=== PATIENT | male | born 1960 | race Caucasian/White ===

== ENCOUNTER → 2018-10-12 16:45 | Emergency (ER) | payer OTHER ==
[~2018-10-12 16:45] MED LIST: Aspirin 81 mg CHEW TAB* 81 MG TAB.CHEW PO ONE; Dexamethasone IV* 4 MG/ML 1 ML (4 MG) IV SLOW PU ONE; Famotidine IV* 10 MG/ML 2 ML (20 mg) IV SLOW PU ONE; diPHENhydraMINE PO* 25 MG PO ONE
--- NOTE | 2018-10-12 17:24 | ED ---
HPI Chest Pain - HPI Summary HPI Summary: Pt is a 57 y/o male who presents to the ED c/o numbness. About 1 hour ago, he noticed left-sided facial swelling and numbness, left toe numbness, CP, and left shoulder pain. Pt denies any palpitations, SOB, paresthesia, weakness, nausea, visual changes, or pruritus. He also reports about 3-4 dizzy spells in the past 3 weeks. Pt has been having flat stool recently, and his last normal colonoscopy was one year ago. - History of Current Complaint Chief Complaint: EDGeneral Time Seen by Provider: 10/12/18 16:55 Hx Obtained From: Patient Onset/Duration: Started Hours Ago - 1 hour [employer], Still Present Timing: Constant Pain Intensity: 0 Pain Scale Used: 0-10 Numeric Chest Pain Location: Diffuse Chest Pain Radiates: Yes Chest Pain Radiates To:: Shoulder Aggravating Factor(s): Nothing Alleviating Factor(s): Nothing Associated Signs and Symptoms: Positive: Chest Pain, Numbness, Swelling. Negative: Tingling, Weakness, Shortness of Breath, Nausea, Palpitations - Allergy/Home Medications Allergies/Adverse Reactions: Allergies Allergy/AdvReac Type Severity Reaction Status Date / Time MS Sulfamethoxazole Allergy Unknown Verified 05/08/17 14:57 w/Trimethoprim Reaction [From Bactrim] Details PMH/Surg Hx/FS Hx/Imm Hx Endocrine/Hematology History: Denies: Hx Diabetes Cardiovascular History: Reports: Hx Hypertension Infectious Disease History: No Infectious Disease History: Denies: Traveled Outside the [place] in Last 30 Days - Family History Known Family History: Positive: Cardiac Disease, Other - stroke - Social History Hx Substance Use: No Substance Use Type: Reports: None Hx Tobacco Use: No Smoking Status (MU): Never Smoked Tobacco Review of Systems Negative: Other - visual changes Positive: Chest Pain. Negative: Palpitations Negative: Shortness Of Breath Negative: Nausea Positive: Arthralgia - left shoulder Positive: Other - redness, swelling, NEGATIVE: pruritus Positive: Numbness. Negative: Weakness, Paresthesia All Other Systems Reviewed And Are Negative: Yes Physical Exam - Summary Physical Exam Summary: Appearance: Well appearing, no pain distress Skin: warm, dry, flushing of upper chest Head/face: facial swelling, smile asymmetry, mild induration and redness to left upper lip Eyes: EOMI, LEONARDA ENT: mucous membranes moist Neck: supple, non-tender Respiratory: CTA, breath sounds present Cardiovascular: RRR, pulses symmetrical Abdomen: non-tender, soft, torso swelling Bowel Sounds: present Musculoskeletal: normal, strength/ROM intact Neuro: normal, sensory motor intact, A&Ox3 Triage Information Reviewed: Yes Vital Signs On Initial Exam: Initial Vitals Temp Pulse Resp BP Pulse Ox 97.6 F 78 18 169/95 97 10/12/18 16:49 10/12/18 16:49 10/12/18 16:49 10/12/18 16:49 10/12/18 16:49 Vital Signs Reviewed: Yes Diagnostics - Vital Signs Vital Signs Temp Pulse Resp BP Pulse Ox 10/12/18 16:49 97.6 F 78 18 169/95 97 - Laboratory Result Diagrams: 10/12/18 17:23 10/12/18 17:23 Lab Statement: Any lab studies that have been ordered have been reviewed, and results considered in the medical decision making process. - Radiology CXR Radiology Interpretation Completed By: Radiologist Summary of Radiographic Findings: NO EVIDENCE FOR ACUTE DISEASE. ED physician reviewed radiology report. - EKG 16:59 Cardiac Rate: NL - 83 bpm EKG Rhythm: Sinus Rhythm ST Segment: Normal Summary of EKG Findings: Incomplete RBBB, nl axis Chest Pain Course/Dx - Course Course Of Treatment: Nurse's note reviewed. Patient with numbness in the left face and foot. Also has swelling of the left upper lip. Possible allergy with some flushing in the thorax. Treated with IV Pepcid and steroid here with some improvement. Also discover the patient to be on Rameau Leonarda. He is hypertensive as well. This likely could be SANTHOSH inhibitor associated angioedema. Chest pain is not small part of this. He had negative troponin, EKG. He will follow-up closely primary care physician. His Rameau pros discontinued for losartan. - Chest Pain Differential Diagnosis/HQI/PQRI: Acute TN, ACS, Other: - Allergic reaction versus SANTHOSH inhibitor angioedema - Diagnoses Provider Diagnoses: Atypical chest pain, SANTHOSH inhibitor-aggravated angioedema Discharge - Sign-Out/Discharge Documenting (check all that apply): Patient Departure - Discharge - Discharge Plan Condition: Improved Disposition: HOME Prescriptions: Famotidine TAB* [Pepcid 20 MG TAB*] 20 mg PO BID #10 tab Losartan TAB* [Cozaar TAB*] 25 mg PO DAILY #30 tab predniSONE TAB* [Deltasone 20 MG TAB*] 40 mg PO DAILY 3 Days #6 tab Patient Education Materials: Chest Pain (ED), Angioedema (ED) Referrals: Chandan Glover MD [Primary Care Provider] - Additional Instructions: Take a baby aspirin daily. DISCONTINUE RAMIPRIL. Call your doctor first thing on Monday to schedule prompt follow-up and likely outpatient stress test. Return with recurring chest pain, pain down the arm, difficulty breathing, weakness, worse, new symptoms or other concerns as discussed. - Billing Disposition and Condition Condition: IMPROVED Disposition: Home - Attestation Statements Document Initiated by Juliana: Yes Documenting Scribe: Chasity Loya Provider For Whom Juliana is Documenting (Include Credential): Adam Mix MD Scribe Attestation: Chasity Sierra, scribed for Adam Mix MD on 10/12/18 at 1911. Scribe Documentation Reviewed: Yes Provider Attestation: The documentation as recorded by the Chasity ferguson accurately reflects the service I personally performed and the decisions made by , Adam Mix MD Status of Scribe Document: Viewed
[2018-10-12 17:41] LABS: ABS Basophils 0 10^3/ul (0-0.2); ABS Eosinophils 0.2 10^3/ul (0-0.6); ABS Lymphocytes 1.9 10^3/ul (1.0-4.8); ABS Monocytes 0.9 10^3/ul (0-0.8); ABS Neutrophils 3.8 10^3/ul (1.5-7.7); ABS Nucleated RBC 0 10^3/ul; Eosinophil % 2.3 %; Hematocrit 40 % (42-52); Hemoglobin 13.9 g/dl (14.0-18.0); Lymphocyte % 28.3 %; Mean Corpuscular HGB Conc 35 g/dl (31-36); Mean Corpuscular Hemoglobin 34 pg (27-31); Mean Corpuscular Volume 97 fL (80-94); Mean Platelet Volume 7.2 fL (7.4-10.4); Nucleated Red Blood Cells % 0; Platelet Count 111 10^3/ul (150-450); Red Blood Count 4.14 10^6/ul (4.00-5.40); Red Cell Distribution Width 13 % (10.5-15); White Blood Count 6.8 10^3/ul (3.5-10.8)
[2018-10-12 17:48] LABS: INR 1.16 (0.77-1.02)
[2018-10-12 17:52] LABS: EGFR Non-African American 134.2 (>60)
[2018-10-12 18:39] VITALS: BP 165/103
== END | disposition home or self-care (01) ==
LOC: ED 16:45
DX: R07.89 Other chest pain (principal); T78.3XXA Angioneurotic edema, initial encounter; T46.5X5A Adverse effect of other antihypertensive drugs, initial encounter; Y92.9 Unspecified place or not applicable; Z88.2 Allergy status to sulfonamides
CPT/HCPCS: 36415; 71045; 80053; 83605; 84484; 85025; 85610; 93005; 96374; 96375; 99282; A9270-GY; J1100

== ENCOUNTER 2021-04-29 18:52 | Inpatient (IN) ==
[2021-04-29] MEDS ORDERED: NS 0.9% 1000 ml BAG 1,000 ML IV ONE (19:30)
[2021-04-29 20:07] LABS: Hematocrit 37 % (42-52); Hemoglobin 12.9 g/dL (14.0-18.0); Mean Corpuscular HGB Conc 35 g/dL (31-36); Mean Corpuscular Hemoglobin 36 pg (27-31); Mean Corpuscular Volume 103 fL (80-94); Red Cell Distribution Width 15 % (10-15); White Blood Count 3.6 10^3/uL (3.5-10.8)
[2021-04-29 20:17] LABS: CKMB ng/mL 2.6 ng/mL (0.6-6.3)
[2021-04-29 20:22] LABS: Troponin I 0.04 ng/mL (<0.03)
[2021-04-29 20:23] LABS: ALT 33 U/L (7-52); AST 105 U/L (13-39); Albumin 3.1 g/dL (3.2-5.2); Albumin/Globulin Ratio 0.6 (1-3); Alkaline Phosphatase 84 U/L (35-149); Anion Gap 10 mmol/L (2-11); Blood Urea Nitrogen 13 mg/dL (6-24); C Reactive Protein 50.04 mg/L (<8.01); CO2 Carbon Dioxide 22 mmol/L (22-32); Calcium 8.1 mg/dL (8.6-10.3); Chloride 98 mmol/L (101-111); Creatine Kinase 347 U/L (10-223); EGFR African American 110.1 (>60); Globulin 4.8 g/dL (2-4); Glucose 133 mg/dL (70-100); Potassium 3.5 mmol/L (3.5-5.0); Sodium 130 mmol/L (135-145); Total Protein 7.9 g/dL (6.4-8.9)
[2021-04-29 20:45] LABS: Macrocytosis 2+
[2021-04-29 20:47] LABS: ABS Lymphocytes 0.4 10^3/ul (1.0-4.8); ABS Monocytes 0.7 10^3/ul (0-0.8); ABS Neutrophils 2.4 10^3/ul (1.5-7.7); Eosinophil % 0.1 %; Lymphocyte % 10.3 %; Mean Platelet Volume 7.6 fL (7.4-10.4); Platelet Count 49 10^3/uL (150-450)
[2021-04-29 23:00] LABS: Activated Partial Thrombo Time 36.4 seconds (26.0-38.0); INR 1.77 (0.86-1.15)
[2021-04-29 23:12] LABS: Influenza A Molecular Negative (Negative); Influenza B Molecular Negative (Negative)
[2021-04-29 23:29] LABS: Troponin I 0.03 ng/mL (<0.03)
[2021-04-30 01:31] LABS: Urine Appearance Clear; Urine Bilirubin Negative (Negative); Urine Blood 2+ (Negative); Urine Color Amber; Urine Glucose Negative (Negative); Urine Ketones Negative (Negative); Urine Nitrite Negative (Negative); Urine Protein Negative (Negative); Urine Specific Gravity 1.016 (1.002-1.030); Urine Urobilinogen Positive (Negative)
[2021-04-30 01:31] LABS: Troponin I 0.04 ng/mL (<0.03)
[2021-04-30 01:34] LABS: Urine Bacteria Absent (Absent); Urine Red Blood Cell 1+(3-5/hpf) (Absent); Urine Squamous Epithelial Cell Present (Absent); Urine White Blood Cell Trace(0-5/hpf) (Absent)
[2021-04-30] MEDS ORDERED: Thiamine 100 MG/ML 2 ml VIAL (200 mg) IM ONE (02:46)
[2021-04-30] MEDS ORDERED: LORazepam 2 mg VIAL 1 ml IV PUSH SCH (03:00)
[2021-04-30 03:35] LABS: Alcohol, S < 10 mg/dL (<10)
[2021-04-30] MEDS: DOXYcycline 100 MG in NS 0.9% 250 ml 250 ML IVPB SCH ×2 (04:10→18:16)
[2021-04-30 04:43] LABS: Troponin I 0.04 ng/mL (<0.03)
[2021-04-30] MEDS: NS 0.9% 1000 ml BAG 1,000 ML IV SCH ×2 (06:09→12:39)
[2021-04-30] MEDS ORDERED: NS 0.9% IV SCH (06:45)
[2021-04-30] MEDS: Multivitamins/Minerals TAB PO SCH (08:34)
[2021-04-30 08:39] LABS: Total Bilirubin 4.9 mg/dL (0.2-1.0)
[2021-04-30] MEDS ORDERED: Potassium Chlor 20 meq TAB.ER PO ONE (12:23)
[2021-04-30] MEDS ORDERED: cefTRIAXone 1 gm/50 mL NS BAG 1 GM/50 ML BAG IVPB SCH (13:00)
[2021-04-30 13:35] LABS: Hepatitis B Surface Antigen Nonreactive (Nonreactive)
[2021-04-30 13:40] LABS: Hepatitis A Ab IgM Negative (Negative); Hepatitis B Core IgM Nonreactive (Nonreactive)
[2021-04-30 13:52] LABS: Hepatitis C Antibody Negative (Negative)
[2021-04-30] MEDS ORDERED: cefTRIAXone 1 gm/50 mL NS BAG 1 GM/50 ML BAG IVPB ONE (18:02)
[2021-04-30 20:06] LABS: Direct Bilirubin 1.9 mg/dL (0.03-0.18); Total Bilirubin 4.8 mg/dL (0.2-1.0)
[2021-05-01] MEDS: DOXYcycline 100 MG in NS 0.9% 250 ml 250 ML IVPB SCH ×2 (05:43→18:21)
[2021-05-01 08:08] LABS: Hematocrit 33 % (42-52); Hemoglobin 11.8 g/dL (14.0-18.0); Mean Corpuscular HGB Conc 35 g/dL (31-36); Mean Corpuscular Hemoglobin 36 pg (27-31); Mean Corpuscular Volume 103 fL (80-94); Mean Platelet Volume 8.3 fL (7.4-10.4); Platelet Count 42 10^3/uL (150-450); Red Blood Count 3.23 10^6 /uL (4.18-5.48); Red Cell Distribution Width 15 % (10-15); White Blood Count 3.4 10^3/uL (3.5-10.8)
[2021-05-01 08:12] LABS: Albumin 2.4 g/dL (3.2-5.2); Albumin/Globulin Ratio 0.6 (1-3); Direct Bilirubin 2.2 mg/dL (0.03-0.18); EGFR African American 139.7 (>60); EGFR Non-African American 115.4 (>60); Globulin 3.9 g/dL (2-4); Indirect Bilirubin 1.9 mg/dL (0.3-1.0); Potassium 3.7 mmol/L (3.5-5.0); Total Bilirubin 4.1 mg/dL (0.2-1.0); Total Protein 6.3 g/dL (6.4-8.9)
[2021-05-01 08:20] LABS: INR 2.17 (0.86-1.15)
[2021-05-01 08:52] LABS: Polychromasia 1+
[2021-05-01] MEDS: Multivitamins/Minerals TAB PO SCH (09:01)
[2021-05-01] MEDS ORDERED: Magnesium Sulf 4 GM/100 ML IV 4,000 MG/100 ML BAG IVPB ONE (12:02)
[2021-05-01 15:49] LABS: Fibrinogen 179.8 mg/dL (110.8-404.3)
[2021-05-01] MEDS: cefTRIAXone 2 GM ADDV.VIAL 2 GM in NS 0.9% 100 ml BAG 100 ML IV SCH (17:23)
[2021-05-02] MEDS: DOXYcycline 100 MG in NS 0.9% 250 ml 250 ML IVPB SCH ×2 (05:39→18:11)
[2021-05-02 05:52] LABS: Hematocrit 34 % (42-52); Hemoglobin 11.5 g/dL (14.0-18.0); Mean Corpuscular HGB Conc 34 g/dL (31-36); Mean Corpuscular Hemoglobin 35 pg (27-31); Mean Corpuscular Volume 104 fL (80-94); Mean Platelet Volume 8.8 fL (7.4-10.4); Platelet Count 47 10^3/uL (150-450); Red Blood Count 3.26 10^6 /uL (4.18-5.48); Red Cell Distribution Width 15 % (10-15); White Blood Count 3.6 10^3/uL (3.5-10.8)
[2021-05-02 05:56] LABS: INR 1.84 (0.86-1.15)
[2021-05-02 06:06] LABS: Albumin 2.3 g/dL (3.2-5.2); Albumin/Globulin Ratio 0.6 (1-3); Calcium 7.3 mg/dL (8.6-10.3); Direct Bilirubin 1.8 mg/dL (0.03-0.18); EGFR African American 192.5 (>60); EGFR Non-African American 159.1 (>60); Globulin 3.7 g/dL (2-4); Indirect Bilirubin 1.3 mg/dL (0.3-1.0); Magnesium 1.7 mg/dL (1.9-2.7); Potassium 3.4 mmol/L (3.5-5.0); Total Bilirubin 3.1 mg/dL (0.2-1.0)
[2021-05-02 06:14] LABS: ABS Eosinophils 0.1 10^3/ul (0-0.6); ABS Lymphocytes 1.1 10^3/ul (1.0-4.8); ABS Monocytes 0.6 10^3/ul (0-0.8); ABS Neutrophils 1.7 10^3/ul (1.5-7.7); Anisocytosis 1+; Eosinophil % 3.6 %; Lymphocyte % 30.7 %; Macrocytosis 1+; Nucleated Red Blood Cells % 0.1
[2021-05-02] MEDS ORDERED: Magnesium Sulfate 2 gm BAG 2 GM/50 ML BAG IVPB ONE (07:50)
[2021-05-02] MEDS: Multivitamins/Minerals TAB PO SCH (09:51)
[2021-05-02] MEDS: cefTRIAXone 2 GM ADDV.VIAL 2 GM in NS 0.9% 100 ml BAG 100 ML IV SCH (17:22)
[2021-05-02 21:50] LABS: Anaplasma phagocytophilum Negative (Negative); B. miyamotoi PCR, B Negative (Negative); Babesia divergens/MO-1 Negative (Negative); Babesia ducani Negative (Negative); Ehrlichia chaffeensis Negative (Negative); Ehrlichia ewingii/canis Negative (Negative); Ehrlichia muris eauclairensis Negative (Negative)
[2021-05-03] MEDS: DOXYcycline 100 MG in NS 0.9% 250 ml 250 ML IVPB SCH (05:26)
[2021-05-03] MEDS ORDERED: Aminophylline 25 MG/ML VIAL ONE (09:03)
[2021-05-03] MEDS ORDERED: Regadenoson 0.4 MG/5 ML SYRINGE ONE (09:03)
[2021-05-03] MEDS ORDERED: Lorazepam PYXIS KEY ONE ×2 (09:23→10:36)
[2021-05-03] MEDS ORDERED: LORazepam 2 mg VIAL 1 ml ONE (09:23)
[2021-05-03 11:21] LABS: ABS Eosinophils 0.1 10^3/ul (0-0.6); ABS Lymphocytes 1.3 10^3/ul (1.0-4.8); ABS Monocytes 0.8 10^3/ul (0-0.8); ABS Neutrophils 1.7 10^3/ul (1.5-7.7); Eosinophil % 3.1 %; Hematocrit 32 % (42-52); Hemoglobin 10.9 g/dL (14.0-18.0); Lymphocyte % 31.8 %; Mean Corpuscular HGB Conc 35 g/dL (31-36); Mean Corpuscular Hemoglobin 35 pg (27-31); Mean Corpuscular Volume 103 fL (80-94); Mean Platelet Volume 8.3 fL (7.4-10.4); Nucleated Red Blood Cells % 0.1; Platelet Count 59 10^3/uL (150-450); Red Blood Count 3.08 10^6 /uL (4.18-5.48); Red Cell Distribution Width 15 % (10-15); White Blood Count 3.9 10^3/uL (3.5-10.8)
[2021-05-03 11:38] VITALS: BP 109/66
[2021-05-03 12:06] LABS: Albumin 2.4 g/dL (3.2-5.2); Albumin/Globulin Ratio 0.7 (1-3); Calcium 7.8 mg/dL (8.6-10.3); EGFR African American 192.5 (>60); EGFR Non-African American 159.1 (>60); Globulin 3.5 g/dL (2-4); Magnesium 1.6 mg/dL (1.9-2.7); Potassium 3.9 mmol/L (3.5-5.0); Total Bilirubin 3.2 mg/dL (0.2-1.0); Total Protein 5.9 g/dL (6.4-8.9)
[2021-05-03 12:16] LABS: Macrocytosis 1+
[2021-05-03] MEDS ORDERED: Magnesium Sulfate 2 gm BAG 2 GM/50 ML BAG IVPB ONE (13:21)
[2021-05-03] MEDS: Multivitamins/Minerals TAB PO SCH (13:53)
== END 2021-05-03 16:25 | disposition home or self-care (01) | DRG 868 ==
LOC: ED 18:52 → MED 04-30 02:38
PROVIDERS: ADMIT Student in an Organized Health Care Education/Training Program; ATTEND Student in an Organized Health Care Education/Training Program

== ENCOUNTER 2022-04-02 14:19 | Observation (INO) ==
[2022-04-02 15:14] LABS: ABS Lymphocytes 0.7 10^3/ul (1.0-4.8); ABS Monocytes 0.9 10^3/ul (0-0.8); ABS Neutrophils 4.8 10^3/ul (1.5-7.7); Eosinophil % 0.7 %; Hematocrit 29 % (42-52); Lymphocyte % 10.8 %; Mean Corpuscular HGB Conc 34 g/dL (31-36); Mean Corpuscular Hemoglobin 36 pg (27-31); Mean Corpuscular Volume 103 fL (80-94); Mean Platelet Volume 6.9 fL (7.4-10.4); Nucleated Red Blood Cells % 0.1; Platelet Count 122 10^3/uL (150-450); Red Blood Count 2.82 10^6 /uL (4.18-5.48); Red Cell Distribution Width 17 % (10-15); White Blood Count 6.5 10^3/uL (3.5-10.8)
[2022-04-02 15:18] LABS: INR 1.6 (0.86-1.15)
[2022-04-02 15:36] LABS: High Sens Troponin Baseline 16 pg/mL (<20)
[2022-04-02 15:54] LABS: ALT 17 U/L (7-52); AST 37 U/L (13-39); Acetaminophen < 15 mcg/mL; Albumin 3.8 g/dL (3.2-5.2); Albumin/Globulin Ratio 1.9 (1-3); Alcohol, S < 13 mg/dL (<13); Alkaline Phosphatase 91 U/L (35-149); Anion Gap 12 mmol/L (2-11); Blood Urea Nitrogen 30 mg/dL (6-24); C Reactive Protein 12.66 mg/L (<8.01); CO2 Carbon Dioxide 20 mmol/L (22-32); Calcium 9.4 mg/dL (8.6-10.3); Chloride 99 mmol/L (101-111); Creatine Kinase 57 U/L (10-223); Glucose 100 mg/dL (70-100); Magnesium 2.6 mg/dL (1.9-2.7); Potassium 4.7 mmol/L (3.5-5.0); Sodium 131 mmol/L (135-145); Total Protein 5.8 g/dL (6.4-8.9); eGFR CKD-EPI 71.4 (>60)
[2022-04-02] MEDS ORDERED: Lactulose 30 ml UDC PO ONE (15:55)
[2022-04-02 16:00] LABS: Urine Appearance Clear; Urine Bilirubin Negative (Negative); Urine Blood Negative (Negative); Urine Color Yellow; Urine Glucose Negative (Negative); Urine Ketones Negative (Negative); Urine Nitrite Negative (Negative); Urine Protein Negative (Negative); Urine Specific Gravity 1.012 (1.002-1.030); Urine Urobilinogen Negative (Negative)
[2022-04-02 16:07] LABS: TSH Ultra Thyroid Stim Horm 2.55 mcIU/mL (0.34-5.60)
[2022-04-02 16:11] LABS: Urine Benzodiazepine Screen None Detected (None Detect); Urine Cannabinoids Screen None Detected (None Detect); Urine Opiates Screen None Detected (None Detect)
[2022-04-02 16:27] LABS: High Sensitivity Troponin 1 Hr 18 pg/mL (<20)
[2022-04-02] MEDS ORDERED: NS 0.9% 1000 ml BAG 1,000 ML IV SCH (18:15)
[2022-04-02] MEDS: cefTRIAXone 2 gm/50 mL D5W 2 GM/50 ML BAG IV SCH (20:18)
[2022-04-03 05:28] LABS: ABS Basophils 0.1 10^3/ul (0-0.2); ABS Eosinophils 0.1 10^3/ul (0-0.6); ABS Lymphocytes 0.9 10^3/ul (1.0-4.8); ABS Monocytes 1.1 10^3/ul (0-0.8); Eosinophil % 0.8 %; Hematocrit 28 % (42-52); Hemoglobin 9.8 g/dL (14.0-18.0); Lymphocyte % 9.8 %; Mean Corpuscular HGB Conc 35 g/dL (31-36); Mean Corpuscular Hemoglobin 36 pg (27-31); Mean Corpuscular Volume 102 fL (80-94); Platelet Count 115 10^3/uL (150-450); Red Blood Count 2.73 10^6 /uL (4.18-5.48); Red Cell Distribution Width 16 % (10-15); White Blood Count 9.2 10^3/uL (3.5-10.8)
[2022-04-03 05:50] LABS: Albumin 3.5 g/dL (3.2-5.2); Albumin/Globulin Ratio 1.8 (1-3); Calcium 9.1 mg/dL (8.6-10.3); Total Bilirubin 5.1 mg/dL (0.2-1.0); Total Protein 5.5 g/dL (6.4-8.9); eGFR CKD-EPI 75.2 (>60)
[2022-04-03] MEDS ORDERED: Lactated Ringers 500 ml BAG 500 ML IV ONE (15:12)
[2022-04-03] MEDS: cefTRIAXone 2 gm/50 mL D5W 2 GM/50 ML BAG IV SCH (21:17)
[2022-04-04] MEDS: Lactulose 30 ml UDC PO SCH ×4 (03:55→22:11)
[2022-04-04 06:23] LABS: ABS Basophils 0.1 10^3/ul (0-0.2); ABS Eosinophils 0.2 10^3/ul (0-0.6); ABS Lymphocytes 1.2 10^3/ul (1.0-4.8); ABS Monocytes 1.2 10^3/ul (0-0.8); ABS Neutrophils 4.1 10^3/ul (1.5-7.7); Eosinophil % 3.6 %; Hematocrit 26 % (42-52); Lymphocyte % 17.6 %; Mean Corpuscular HGB Conc 34 g/dL (31-36); Mean Corpuscular Hemoglobin 36 pg (27-31); Mean Corpuscular Volume 103 fL (80-94); Mean Platelet Volume 7.1 fL (7.4-10.4); Nucleated Red Blood Cells % 0.1; Platelet Count 114 10^3/uL (150-450); Red Blood Count 2.54 10^6 /uL (4.18-5.48); Red Cell Distribution Width 16 % (10-15); White Blood Count 6.7 10^3/uL (3.5-10.8)
[2022-04-04 06:57] LABS: Albumin 3.2 g/dL (3.2-5.2); Albumin/Globulin Ratio 1.5 (1-3); Calcium 8.6 mg/dL (8.6-10.3); Globulin 2.1 g/dL (2-4); Potassium 3.1 mmol/L (3.5-5.0); Total Bilirubin 3.1 mg/dL (0.2-1.0); Total Protein 5.3 g/dL (6.4-8.9); eGFR CKD-EPI 76.9 (>60)
[2022-04-04 08:45] LABS: Magnesium 2.3 mg/dL (1.9-2.7)
[2022-04-04] MEDS: KCL 20 MEQ/100 ML IVPREMIX 20 MEQ/100 ML BAG IV SCH ×2 (13:30→14:53)
[2022-04-04 17:50] LABS: Anion Gap 7 mmol/L (2-11); Blood Urea Nitrogen 27 mg/dL (6-24); CO2 Carbon Dioxide 22 mmol/L (22-32); Calcium 8.5 mg/dL (8.6-10.3); Chloride 106 mmol/L (101-111); Glucose 125 mg/dL (70-100); Potassium 3.4 mmol/L (3.5-5.0); Sodium 135 mmol/L (135-145); eGFR CKD-EPI 70.6 (>60)
[2022-04-04 21:36] LABS: Vitamin B12 1070 pg/mL (180-914)
[2022-04-04 21:38] LABS: Folate > 20.00 ng/mL (5.90-24.80)
[2022-04-05] MEDS: Lactulose 30 ml UDC PO SCH ×2 (02:53→09:46)
[2022-04-05 05:16] LABS: Hematocrit 27 % (42-52); Hemoglobin 9.5 g/dL (14.0-18.0); Mean Corpuscular HGB Conc 35 g/dL (31-36); Mean Corpuscular Hemoglobin 36 pg (27-31); Mean Corpuscular Volume 104 fL (80-94); Mean Platelet Volume 7.1 fL (7.4-10.4); Platelet Count 111 10^3/uL (150-450); Red Blood Count 2.62 10^6 /uL (4.18-5.48); Red Cell Distribution Width 16 % (10-15); White Blood Count 7.5 10^3/uL (3.5-10.8)
[2022-04-05 05:39] LABS: Calcium 8.3 mg/dL (8.6-10.3); Magnesium 2.1 mg/dL (1.9-2.7); Potassium 3.5 mmol/L (3.5-5.0); eGFR CKD-EPI 73.6 (>60)
[2022-04-05 11:07] VITALS: BP 144/83
== END 2022-04-05 15:40 | disposition home or self-care (01) ==
LOC: EDHOLD 14:19 → ED 14:19 → SUATTDRO 17:39 → SSU 21:56
PROVIDERS: ADMIT Internal Medicine; ATTEND Internal Medicine

== ENCOUNTER 2022-04-24 14:16 | Inpatient (IN) ==
[2022-04-24 15:50] LABS: ABS Basophils 0.1 10^3/ul (0-0.2); ABS Eosinophils 0.2 10^3/ul (0-0.6); ABS Monocytes 0.8 10^3/ul (0-0.8); ABS Neutrophils 4.2 10^3/ul (1.5-7.7); Eosinophil % 2.7 %; Hematocrit 33 % (42-52); Hemoglobin 10.9 g/dL (14.0-18.0); Lymphocyte % 16.4 %; Mean Corpuscular HGB Conc 33 g/dL (31-36); Mean Corpuscular Hemoglobin 35 pg (27-31); Mean Corpuscular Volume 105 fL (80-94); Platelet Count 134 10^3/uL (150-450); Red Blood Count 3.15 10^6 /uL (4.18-5.48); Red Cell Distribution Width 16 % (10-15); White Blood Count 6.2 10^3/uL (3.5-10.8)
[2022-04-24 16:31] LABS: Albumin 3.6 g/dL (3.2-5.2); Albumin/Globulin Ratio 1.4 (1-3); C Reactive Protein 19.85 mg/L (<8.01); Calcium 8.9 mg/dL (8.6-10.3); Globulin 2.6 g/dL (2-4); Potassium 5.2 mmol/L (3.5-5.0); Total Bilirubin 3.5 mg/dL (0.2-1.0); Total Protein 6.2 g/dL (6.4-8.9); eGFR CKD-EPI 44.6 (>60)
[2022-04-24 17:22] LABS: High Sensitivity Troponin 1 Hr 14 pg/mL (<20)
[2022-04-24] MEDS ORDERED: Ondansetron 4 mg VIAL 2 MG/ML 2 ml VIAL IV ONE (19:29)
[2022-04-24] MEDS ORDERED: Lactulose 30 ml UDC PO ONE (20:00)
[2022-04-24] MEDS ORDERED: cefTRIAXone 1 gm/50 mL D5W 1 GM/50 ML BAG IV ONE (22:45)
[2022-04-24] MEDS: Heparin 5000 UNITS/ML 1 mL VIAL SUBCUT SCH (23:00)
[2022-04-24 23:06] LABS: PCO2 Arterial 24 mmHg (35-45); PO2 Arterial 119 mmHg (80-100)
[2022-04-25 00:45] LABS: Activated Partial Thrombo Time 35.9 seconds (26.0-38.0); INR 1.39 (0.86-1.15)
[2022-04-25 01:02] LABS: Calcium 8.6 mg/dL (8.6-10.3)
[2022-04-25 01:03] LABS: Potassium 5.7 mmol/L (3.5-5.0)
[2022-04-25 01:07] LABS: eGFR CKD-EPI 39.4 (>60)
[2022-04-25 01:26] LABS: TSH Ultra Thyroid Stim Horm 3.04 mcIU/mL (0.34-5.60)
[2022-04-25] MEDS ORDERED: cefTRIAXone 1 gm/50 mL D5W 1 GM/50 ML BAG IV ONE (01:45)
[2022-04-25] MEDS ORDERED: Dextrose 50% Syringe 50 ml 25 GM/50 ML SYRINGE IV PUSH ONE (06:20)
[2022-04-25] MEDS: Heparin 5000 UNITS/ML 1 mL VIAL SUBCUT SCH ×3 (06:38→21:27)
[2022-04-25 06:45] LABS: ABS Basophils 0.1 10^3/ul (0-0.2); ABS Eosinophils 0.2 10^3/ul (0-0.6); ABS Lymphocytes 0.9 10^3/ul (1.0-4.8); ABS Monocytes 1.1 10^3/ul (0-0.8); Hematocrit 30 % (42-52); Hemoglobin 10.1 g/dL (14.0-18.0); Lymphocyte % 12.7 %; Mean Corpuscular HGB Conc 34 g/dL (31-36); Mean Corpuscular Hemoglobin 35 pg (27-31); Mean Corpuscular Volume 103 fL (80-94); Platelet Count 125 10^3/uL (150-450); Red Blood Count 2.86 10^6 /uL (4.18-5.48); Red Cell Distribution Width 16 % (10-15); White Blood Count 7.3 10^3/uL (3.5-10.8)
[2022-04-25 07:34] LABS: ALT 22 U/L (7-52); Albumin 3.3 g/dL (3.2-5.2); Albumin/Globulin Ratio 1.3 (1-3); Alkaline Phosphatase 74 U/L (35-149); Blood Urea Nitrogen 46 mg/dL (6-24); C Reactive Protein 20.76 mg/L (<8.01); CO2 Carbon Dioxide 17 mmol/L (22-32); Calcium 8.8 mg/dL (8.6-10.3); Chloride 102 mmol/L (101-111); Globulin 2.6 g/dL (2-4); Glucose 100 mg/dL (70-100); Sodium 130 mmol/L (135-145); Total Protein 5.9 g/dL (6.4-8.9); eGFR CKD-EPI 37.1 (>60)
[2022-04-25 07:37] LABS: Anion Gap 11 mmol/L (2-11)
[2022-04-25] MEDS ORDERED: ALBUMIN HUMAN 25% IV SCH (11:00)
[2022-04-25 12:41] LABS: Magnesium 2.6 mg/dL (1.9-2.7); Phosphorus 5.7 mg/dL (2.5-5.0); Potassium Redraw 4.5 mmol/L (3.5-5.0)
[2022-04-25] MEDS: Lactulose 30 ml UDC PO SCH ×3 (12:45→21:27)
[2022-04-25] MEDS: Vitamin THERAPEUTIC TAB PO SCH (12:48)
[2022-04-25] MEDS: SODIUM ZIRCONIUM CYCLOSILICATE 5 GM PACKET PO SCH (12:56)
[2022-04-25] MEDS: Albumin Human 25% 25 GM/100 ML IV SCH ×2 (13:07→15:01)
[2022-04-25 17:34] LABS: Body Fluid Appearance Cloudy; Body Fluid Color Yellow; Body Fluid Source Peritonial Fluid
[2022-04-25 18:45] LABS: Body Fluid WBC 37 /mcL
[2022-04-25 18:52] LABS: Body Fluid Mono 77 %; Body Fluid Total Cells Counted 200
[2022-04-25 20:01] LABS: Urine Appearance Cloudy; Urine Bilirubin Negative (Negative); Urine Blood Negative (Negative); Urine Color Yellow; Urine Glucose Negative (Negative); Urine Ketones Negative (Negative); Urine Nitrite Negative (Negative); Urine Protein Negative (Negative); Urine Specific Gravity 1.015 (1.002-1.030); Urine Urobilinogen Negative (Negative)
[2022-04-25] MEDS ORDERED: cefTRIAXone 1 gm/50 mL D5W 1 GM/50 ML BAG IV SCH (21:00)
[2022-04-26] MEDS ORDERED: cefTRIAXone 2 gm/50 mL D5W 2 GM/50 ML BAG IV SCH
[2022-04-26] MEDS: Heparin 5000 UNITS/ML 1 mL VIAL SUBCUT SCH ×2 (05:15→12:31)
[2022-04-26] MEDS: Vitamin THERAPEUTIC TAB PO SCH (07:59)
[2022-04-26] MEDS: Lactulose 30 ml UDC PO SCH ×3 (07:59→20:53)
[2022-04-26] MEDS: SODIUM ZIRCONIUM CYCLOSILICATE 5 GM PACKET PO SCH (07:59)
[2022-04-26] MEDS: Albumin Human 25% 25 GM/100 ML IV SCH ×2 (09:02→09:51)
[2022-04-26 10:05] LABS: Albumin 3.3 g/dL (3.2-5.2); Albumin/Globulin Ratio 1.7 (1-3); Calcium 8.4 mg/dL (8.6-10.3); Potassium 4.3 mmol/L (3.5-5.0); Total Bilirubin 2.2 mg/dL (0.2-1.0); Total Protein 5.3 g/dL (6.4-8.9); eGFR CKD-EPI 47.2 (>60)
[2022-04-26] MEDS ORDERED: fentaNYL 100 mcg/2 ml 50 MCG/ML VIAL ONE (14:21)
[2022-04-26] MEDS ORDERED: Midazolam 10 mg/10 ml VIAL 1 mg/ml 10 ml VIAL (10 mg) ONE (14:21)
[2022-04-26] MEDS ORDERED: cefTRIAXone 1 gm/50 mL D5W 1 GM/50 ML BAG IV SCH (22:00)
[2022-04-27 05:21] LABS: ABS Eosinophils 0.2 10^3/ul (0-0.6); ABS Lymphocytes 0.6 10^3/ul (1.0-4.8); ABS Monocytes 0.7 10^3/ul (0-0.8); ABS Neutrophils 3.1 10^3/ul (1.5-7.7); Eosinophil % 5.1 %; Hematocrit 26 % (42-52); Hemoglobin 9.1 g/dL (14.0-18.0); Lymphocyte % 12.4 %; Mean Corpuscular HGB Conc 34 g/dL (31-36); Mean Corpuscular Hemoglobin 35 pg (27-31); Mean Corpuscular Volume 103 fL (80-94); Red Blood Count 2.57 10^6 /uL (4.18-5.48); Red Cell Distribution Width 15 % (10-15); White Blood Count 4.6 10^3/uL (3.5-10.8)
[2022-04-27 05:41] LABS: Calcium 8.6 mg/dL (8.6-10.3); Potassium 3.9 mmol/L (3.5-5.0); eGFR CKD-EPI 64.7 (>60)
[2022-04-27 06:31] LABS: Mean Platelet Volume 6.8 fL (7.4-10.4); Platelet Count 91 10^3/uL (150-450)
[2022-04-27 07:29] LABS: Ur Urea Nitrogen Concentration 932 mg/dL
[2022-04-27] MEDS: Vitamin THERAPEUTIC TAB PO SCH (08:43)
[2022-04-27] MEDS: Lactulose 30 ml UDC PO SCH ×2 (08:43→15:19)
[2022-04-27] MEDS: Albumin Human 25% 25 GM/100 ML IV SCH ×2 (08:45→11:07)
[2022-04-27 09:01] LABS: BUN Serum 41 mg/dL (6-24); Urea Nitrogen Clearance 13 mL/min (59-99)
[2022-04-27] MEDS ORDERED: SODIUM ZIRCONIUM CYCLOSILICATE 5 GM PACKET PO SCH (11:00)
[2022-04-27] MEDS: SODIUM ZIRCONIUM CYCLOSILICATE 5 GM PACKET PO SCH (11:22)
[2022-04-27 16:45] VITALS: BP 128/76
[2022-04-28 10:29] LABS: Lactate Dehydrogenase, BF 52 U/L
[2022-04-28 11:51] LABS: Albumin, BF 0.5 g/dL; Fluid Type, Albumin PERITONEAL
[2022-04-28 11:52] LABS: Fluid Type, Protein, Total PERITONEAL; Total Protein, BF 0.8 g/dL
[2022-04-30 10:06] LABS: Glucose, BF 124 mg/dL
== END 2022-04-27 18:30 | disposition home or self-care (01) | DRG 432 ==
LOC: ED 14:16 → EDHOLD 14:16 → SUATTDRO 21:17 → SSU 04-25 08:40 → SUATTDRO 04-26 15:54
PROVIDERS: ADMIT Hospitalist; ATTEND Internal Medicine

== ENCOUNTER 2022-07-05 14:28 | Inpatient (IN) ==
[2022-07-05] MEDS ORDERED: fentaNYL 100 mcg/2 ml 50 MCG/ML VIAL IV SLOW PU PRN (14:40)
[2022-07-05] MEDS ORDERED: Lactated Ringers 1000 ml BAG 250 ML IV ONE (14:41)
[2022-07-05 14:52] LABS: Hematocrit 19 % (42-52)
[2022-07-05] MEDS ORDERED: Lidocaine 1% MPF 5 ML VIAL ONE (15:27)
[2022-07-05] MEDS ORDERED: Iodixanol 320 (CONTRAST) 100 ML SDV ONE (15:28)
[2022-07-05] MEDS ORDERED: Heparin 2 UNITS/ML IVPREMIX 3,000 UNIT/1,500 ML BAG IV ONE (15:28)
[2022-07-05] MEDS ORDERED: Ondansetron 4 mg VIAL 2 MG/ML 2 ml VIAL ONE (15:33)
[2022-07-05] MEDS ORDERED: Midazolam 5 mg/5 ml VIAL 1 mg/ml 5 ml VIAL (5 mg) ONE (15:37)
[2022-07-05] MEDS ORDERED: fentaNYL 100 mcg/2 ml 50 MCG/ML VIAL ONE (15:37)
[2022-07-05] MEDS ORDERED: Atropine 0.1 MG/ML 10 ml SYR (1 mg) ONE (16:45)
[2022-07-05] MEDS ORDERED: Gelfoam 12-7 ADSORBABL SPONGE ONE (16:45)
[2022-07-05] MEDS ORDERED: Gelfoam Sponge SIZE 100 SPONGE ONE (16:46)
[2022-07-05] MEDS ORDERED: NS 0.9% 250 ml 250 ML IV ONE (20:00)
[2022-07-05] MEDS ORDERED: ALBUMIN HUMAN 25% IV ONE (23:09)
[2022-07-05 23:17] LABS: Albumin 2.9 g/dL (3.2-5.2); Albumin/Globulin Ratio 1.7 (1-3); Calcium 8.3 mg/dL (8.6-10.3); Globulin 1.7 g/dL (2-4); Total Bilirubin 4.3 mg/dL (0.2-1.0); Total Protein 4.6 g/dL (6.4-8.9); eGFR CKD-EPI 55.2 (>60)
[2022-07-05 23:34] LABS: Potassium 5.2 mmol/L (3.5-5.0)
[2022-07-05 23:52] LABS: Hematocrit 25 % (42-52); Hemoglobin 8.1 g/dL (14.0-18.0); Mean Corpuscular HGB Conc 33 g/dL (31-36); Mean Corpuscular Hemoglobin 32 pg (27-31); Mean Corpuscular Volume 97 fL (80-94); Mean Platelet Volume 7.2 fL (7.4-10.4); Platelet Count 95 10^3/uL (150-450); Red Blood Count 2.51 10^6 /uL (4.18-5.48); Red Cell Distribution Width 16 % (10-15); White Blood Count 7.2 10^3/uL (3.5-10.8)
[2022-07-06 02:34] LABS: Hematocrit 20 % (42-52); Hemoglobin 6.6 g/dL (14.0-18.0); Mean Corpuscular HGB Conc 34 g/dL (31-36); Mean Corpuscular Hemoglobin 32 pg (27-31); Mean Corpuscular Volume 95 fL (80-94); Mean Platelet Volume 7.4 fL (7.4-10.4); Platelet Count 88 10^3/uL (150-450); Red Blood Count 2.07 10^6 /uL (4.18-5.48); Red Cell Distribution Width 16 % (10-15); White Blood Count 6.5 10^3/uL (3.5-10.8)
[2022-07-06 03:06] LABS: Hematocrit 19 % (42-52); Hemoglobin 6.3 g/dL (14.0-18.0); Mean Corpuscular HGB Conc 34 g/dL (31-36); Mean Corpuscular Hemoglobin 32 pg (27-31); Mean Corpuscular Volume 94 fL (80-94); Mean Platelet Volume 7.2 fL (7.4-10.4); Platelet Count 78 10^3/uL (150-450); Red Blood Count 1.96 10^6 /uL (4.18-5.48); Red Cell Distribution Width 16 % (10-15); White Blood Count 6.2 10^3/uL (3.5-10.8)
[2022-07-06 04:30] LABS: ABS Eosinophils 0.1 10^3/ul (0-0.6); ABS Lymphocytes 0.8 10^3/ul (1.0-4.8); ABS Neutrophils 4.3 10^3/ul (1.5-7.7); Eosinophil % 1.2 %; Lymphocyte % 13.5 %; Nucleated Red Blood Cells % 0.1
[2022-07-06] MEDS: Multivitamins/Minerals TAB PO SCH (08:04)
[2022-07-06] MEDS: Lactulose 30 ml UDC PO SCH ×3 (08:04→20:27)
[2022-07-06 08:20] LABS: Hematocrit 23 % (42-52); Hemoglobin 7.6 g/dL (14.0-18.0); Mean Corpuscular HGB Conc 33 g/dL (31-36); Mean Corpuscular Hemoglobin 32 pg (27-31); Mean Corpuscular Volume 95 fL (80-94); Mean Platelet Volume 7.2 fL (7.4-10.4); Platelet Count 77 10^3/uL (150-450); Red Cell Distribution Width 16 % (10-15); White Blood Count 7.2 10^3/uL (3.5-10.8)
[2022-07-06 08:22] LABS: INR 1.75 (0.89-1.11)
[2022-07-06] MEDS: cefTRIAXone 1 gm/50 mL D5W 1 GM/50 ML BAG IV SCH (10:21)
[2022-07-06 11:21] LABS: Activated Partial Thrombo Time 40.5 seconds (26.0-38.0); Fibrinogen 147.7 mg/dL (110.8-404.3)
[2022-07-06 18:39] LABS: ABS Basophils 0.1 10^3/ul (0-0.2); ABS Eosinophils 0.3 10^3/ul (0-0.6); ABS Lymphocytes 0.7 10^3/ul (1.0-4.8); ABS Monocytes 1.4 10^3/ul (0-0.8); ABS Neutrophils 5.4 10^3/ul (1.5-7.7); Eosinophil % 3.3 %; Hematocrit 25 % (42-52); Hemoglobin 8.5 g/dL (14.0-18.0); Lymphocyte % 9.3 %; Mean Corpuscular HGB Conc 34 g/dL (31-36); Mean Corpuscular Hemoglobin 32 pg (27-31); Mean Corpuscular Volume 93 fL (80-94); Mean Platelet Volume 7.1 fL (7.4-10.4); Platelet Count 84 10^3/uL (150-450); Red Blood Count 2.68 10^6 /uL (4.18-5.48); Red Cell Distribution Width 16 % (10-15); White Blood Count 7.8 10^3/uL (3.5-10.8)
[2022-07-06 19:03] LABS: Calcium 8.2 mg/dL (8.6-10.3); Potassium 4.6 mmol/L (3.5-5.0); eGFR CKD-EPI 50.9 (>60)
[2022-07-07 05:00] LABS: ABS Basophils 0.1 10^3/ul (0-0.2); ABS Eosinophils 0.3 10^3/ul (0-0.6); ABS Lymphocytes 0.9 10^3/ul (1.0-4.8); ABS Monocytes 1.4 10^3/ul (0-0.8); ABS Neutrophils 5.4 10^3/ul (1.5-7.7); Eosinophil % 3.7 %; Hematocrit 21 % (42-52); Hemoglobin 7.2 g/dL (14.0-18.0); Lymphocyte % 11.3 %; Mean Corpuscular HGB Conc 34 g/dL (31-36); Mean Corpuscular Hemoglobin 31 pg (27-31); Mean Corpuscular Volume 92 fL (80-94); Mean Platelet Volume 6.4 fL (7.4-10.4); Platelet Count 79 10^3/uL (150-450); Red Blood Count 2.28 10^6 /uL (4.18-5.48); Red Cell Distribution Width 16 % (10-15); White Blood Count 8.1 10^3/uL (3.5-10.8)
[2022-07-07 05:37] LABS: Blood Urea Nitrogen 41 mg/dL (6-24); CO2 Carbon Dioxide 17 mmol/L (22-32); Calcium 8.2 mg/dL (8.6-10.3); Chloride 106 mmol/L (101-111); Glucose 122 mg/dL (70-100); Sodium 134 mmol/L (135-145); eGFR CKD-EPI 60.1 (>60)
[2022-07-07 05:52] LABS: Anion Gap 11 mmol/L (2-11)
[2022-07-07 07:16] LABS: Potassium Redraw 4.4 mmol/L (3.5-5.0)
[2022-07-07 08:53] LABS: ALT 10 U/L (7-52); Albumin 3.2 g/dL (3.2-5.2); Albumin/Globulin Ratio 1.9 (1-3); Alkaline Phosphatase 57 U/L (35-149); Globulin 1.7 g/dL (2-4); Total Protein 4.9 g/dL (6.4-8.9)
[2022-07-07] MEDS: Multivitamins/Minerals TAB PO SCH (09:19)
[2022-07-07] MEDS: Lactulose 30 ml UDC PO SCH ×3 (09:20→21:36)
[2022-07-07] MEDS: cefTRIAXone 1 gm/50 mL D5W 1 GM/50 ML BAG IV SCH (09:20)
[2022-07-07 09:43] LABS: Hematocrit 23 % (42-52); Hemoglobin 7.6 g/dL (14.0-18.0)
[2022-07-07 10:25] LABS: Activated Partial Thrombo Time 33.3 seconds (26.0-38.0); INR 1.43 (0.89-1.11)
[2022-07-08 04:38] LABS: ABS Eosinophils 0.4 10^3/ul (0-0.6); ABS Lymphocytes 0.9 10^3/ul (1.0-4.8); ABS Monocytes 1.5 10^3/ul (0-0.8); ABS Neutrophils 4.3 10^3/ul (1.5-7.7); Eosinophil % 5.2 %; Hematocrit 21 % (42-52); Hemoglobin 7.1 g/dL (14.0-18.0); Lymphocyte % 12.9 %; Mean Corpuscular HGB Conc 33 g/dL (31-36); Mean Corpuscular Hemoglobin 31 pg (27-31); Mean Corpuscular Volume 94 fL (80-94); Mean Platelet Volume 7.1 fL (7.4-10.4); Platelet Count 79 10^3/uL (150-450); Red Blood Count 2.29 10^6 /uL (4.18-5.48); Red Cell Distribution Width 16 % (10-15); White Blood Count 7.2 10^3/uL (3.5-10.8)
[2022-07-08 04:55] LABS: INR 1.48 (0.89-1.11)
[2022-07-08 05:07] LABS: Albumin/Globulin Ratio 1.5 (1-3); Potassium 4.5 mmol/L (3.5-5.0); eGFR CKD-EPI 72.9 (>60)
[2022-07-08] MEDS: Multivitamins/Minerals TAB PO SCH (08:31)
[2022-07-08] MEDS: Lactulose 30 ml UDC PO SCH ×3 (08:31→21:40)
[2022-07-08] MEDS: cefTRIAXone 1 gm/50 mL D5W 1 GM/50 ML BAG IV SCH (08:32)
[2022-07-08] MEDS ORDERED: Albumin Human 25% 12.5 GM/50 ML BTL IV ONE (16:36)
[2022-07-09] MEDS: cefTRIAXone 1 gm/50 mL D5W 1 GM/50 ML BAG IV SCH (09:15)
[2022-07-09] MEDS: Multivitamins/Minerals TAB PO SCH (09:15)
[2022-07-09] MEDS: Lactulose 30 ml UDC PO SCH ×3 (09:15→19:57)
[2022-07-09 11:37] LABS: Hematocrit 24 % (42-52); Hemoglobin 8.6 g/dL (14.0-18.0); Mean Corpuscular HGB Conc 35 g/dL (31-36); Mean Corpuscular Hemoglobin 34 pg (27-31); Mean Corpuscular Volume 96 fL (80-94); Mean Platelet Volume 6.5 fL (7.4-10.4); Platelet Count 94 10^3/uL (150-450); Red Blood Count 2.53 10^6 /uL (4.18-5.48); Red Cell Distribution Width 15 % (10-15); White Blood Count 6.5 10^3/uL (3.5-10.8)
[2022-07-09 12:26] LABS: Albumin 3.3 g/dL (3.2-5.2); Albumin/Globulin Ratio 1.7 (1-3); Calcium 8.3 mg/dL (8.6-10.3); Potassium 4.4 mmol/L (3.5-5.0); Total Bilirubin 2.9 mg/dL (0.2-1.0); Total Protein 5.3 g/dL (6.4-8.9); eGFR CKD-EPI 97.8 (>60)
[2022-07-10 04:34] VITALS: BP 152/92
[2022-07-10 05:32] LABS: Hematocrit 26 % (42-52); Hemoglobin 8.5 g/dL (14.0-18.0); Mean Corpuscular HGB Conc 33 g/dL (31-36); Mean Corpuscular Hemoglobin 32 pg (27-31); Mean Corpuscular Volume 96 fL (80-94); Platelet Count 103 10^3/uL (150-450); Red Blood Count 2.66 10^6 /uL (4.18-5.48); Red Cell Distribution Width 16 % (10-15); White Blood Count 6.7 10^3/uL (3.5-10.8)
[2022-07-10 06:22] LABS: Albumin 3.3 g/dL (3.2-5.2); Albumin/Globulin Ratio 1.6 (1-3); Calcium 8.4 mg/dL (8.6-10.3); Globulin 2.1 g/dL (2-4); Total Protein 5.4 g/dL (6.4-8.9); eGFR CKD-EPI 90.5 (>60)
[2022-07-10 06:23] LABS: Potassium 5.1 mmol/L (3.5-5.0)
[2022-07-10] MEDS: Lactulose 30 ml UDC PO SCH (08:08)
[2022-07-10] MEDS: Multivitamins/Minerals TAB PO SCH (08:08)
[2022-07-10] MEDS: cefTRIAXone 1 gm/50 mL D5W 1 GM/50 ML BAG IV SCH (08:08)
== END 2022-07-10 12:02 | disposition home or self-care (01) | DRG 908 ==
LOC: ED 14:28 → EDHOLD 14:28 → MEDTELE 19:46 → ICU 07-06 06:30
PROVIDERS: ADMIT Internal Medicine; ATTEND Internal Medicine

== ENCOUNTER 2023-01-24 07:29 | Inpatient (IN) ==
[2023-01-24 08:07] LABS: ABS Basophils 0.1 10^3/ul (0-0.2); ABS Eosinophils 0.2 10^3/ul (0-0.6); ABS Lymphocytes 1.4 10^3/ul (1.0-4.8); ABS Monocytes 1.2 10^3/ul (0-0.8); ABS Neutrophils 4.2 10^3/ul (1.5-7.7); Eosinophil % 3.5 %; Hematocrit 31 % (42-52); Hemoglobin 10.8 g/dL (14.0-18.0); Lymphocyte % 19.8 %; Mean Corpuscular Hemoglobin 34 pg (27-31); Mean Corpuscular Hgb Conc 35 g/dL (31-36); Mean Corpuscular Volume 97 fL (80-94); Nucleated Red Blood Cells % 0.1; Platelet Count 174 10^3/uL (150-450); Red Cell Distribution Width 17 % (10-15)
[2023-01-24 08:17] LABS: Activated Partial Thrombo Time 36.7 seconds (26.0-38.0); INR 1.46 (0.88-1.18)
[2023-01-24 08:31] LABS: High Sens Troponin Baseline 18 pg/mL (<20)
[2023-01-24 08:42] LABS: ALT 14 U/L (7-52); AST 36 U/L (13-39); Acetaminophen < 15 mcg/mL; Albumin/Globulin Ratio 0.9 (1-3); Alcohol, S < 13 mg/dL (<13); Alkaline Phosphatase 80 U/L (35-149); Anion Gap 9 mmol/L (2-11); Blood Urea Nitrogen 21 mg/dL (6-24); CO2 Carbon Dioxide 21 mmol/L (22-32); Calcium 9.2 mg/dL (8.6-10.3); Chloride 103 mmol/L (101-111); Creatine Kinase 187 U/L (10-223); Creatinine, Serum 0.83 mg/dL (0.67-1.17); Globulin 3.2 g/dL (2-4); Glucose 97 mg/dL (70-100); Potassium 4.2 mmol/L (3.5-5.0); Salicylate < 2.50 mg/dL (<30); Sodium 133 mmol/L (135-145); Total Protein 6.2 g/dL (6.4-8.9); eGFR CKD-EPI 99.6 (>60)
[2023-01-24 09:38] LABS: High Sensitivity Troponin 1 Hr 20 pg/mL (<20)
[2023-01-24] MEDS ORDERED: NS 0.9% 1000 ml BAG 1,000 ML IV ONE (09:58)
[2023-01-24] MEDS: Lactulose 30 ml UDC PO ONE ×2 (09:59→10:01)
[2023-01-24] MEDS ORDERED: Lactulose 30 ml UDC NG TUBE ONE (10:05)
[2023-01-24] MEDS ORDERED: Lactulose 300 ML for PR 200 GM/300 ML BTL PR SCH ×2 (11:00→17:00)
[2023-01-24] MEDS ORDERED: NS 0.9% 1000 ml BAG 1,000 ML IV SCH (11:30)
[2023-01-24 12:29] LABS: Urine Appearance Clear; Urine Bilirubin Negative (Negative); Urine Blood Negative (Negative); Urine Color Yellow; Urine Glucose Negative (Negative); Urine Ketones Negative (Negative); Urine Nitrite Negative (Negative); Urine Protein Negative (Negative); Urine Specific Gravity 1.013 (1.002-1.030); Urine Urobilinogen Positive (Negative)
[2023-01-24] MEDS ORDERED: Lactulose 300 ML for PR 200 GM/300 ML BTL PR ONE (13:30)
[2023-01-24] MEDS ORDERED: Lactulose 30 ml UDC PO ONE (14:41)
[2023-01-24] MEDS: Lactulose 30 ml UDC PO SCH ×2 (18:30→21:14)
[2023-01-24] MEDS: Heparin 5000 UNITS/ML 1 mL VIAL SUBCUT SCH (21:15)
[2023-01-25 05:41] LABS: ABS Basophils 0.1 10^3/ul (0-0.2); ABS Eosinophils 0.4 10^3/ul (0-0.6); ABS Lymphocytes 1.3 10^3/ul (1.0-4.8); ABS Monocytes 1.1 10^3/ul (0-0.8); ABS Neutrophils 5.1 10^3/ul (1.5-7.7); Eosinophil % 5.1 %; Hematocrit 29 % (42-52); Hemoglobin 10.4 g/dL (14.0-18.0); Lymphocyte % 16.6 %; Mean Corpuscular Hemoglobin 34 pg (27-31); Mean Corpuscular Hgb Conc 35 g/dL (31-36); Mean Corpuscular Volume 97 fL (80-94); Mean Platelet Volume 5.9 fL (7.4-10.4); Platelet Count 178 10^3/uL (150-450); Red Blood Count 3.03 10^6 /uL (4.18-5.48); Red Cell Distribution Width 17 % (10-15); White Blood Count 8.1 10^3/uL (3.5-10.8)
[2023-01-25 05:54] LABS: Creatinine, Serum 0.65 mg/dL (0.67-1.17); Potassium 3.8 mmol/L (3.5-5.0); eGFR CKD-EPI 107.2 (>60)
[2023-01-25] MEDS ORDERED: KCL 20 MEQ/100 ML IVPREMIX 20 MEQ/100 ML BAG IV ONE (07:43)
[2023-01-25] MEDS: Heparin 5000 UNITS/ML 1 mL VIAL SUBCUT SCH ×2 (08:51→20:15)
[2023-01-25] MEDS: Lactulose 30 ml UDC PO SCH ×5 (08:51→21:23)
[2023-01-25 10:06] LABS: Magnesium 1.8 mg/dL (1.9-2.7)
[2023-01-25] MEDS ORDERED: Magnesium Sulfate 2 gm BAG 2 GM/50 ML BAG IVPB ONE (10:12)
[2023-01-25] MEDS ORDERED: Lactulose 30 ml UDC PO ONE (18:28)
[2023-01-25] MEDS ORDERED: Prochlorperazine 5 mg/ml 2 ml VIAL (10 mg) IV PRN (19:48)
[2023-01-26 05:46] LABS: Hematocrit 29 % (42-52); Hemoglobin 9.8 g/dL (14.0-18.0); Mean Corpuscular Hemoglobin 34 pg (27-31); Mean Corpuscular Hgb Conc 34 g/dL (31-36); Mean Corpuscular Volume 98 fL (80-94); Mean Platelet Volume 5.8 fL (7.4-10.4); Platelet Count 155 10^3/uL (150-450); Red Cell Distribution Width 17 % (10-15); White Blood Count 15.7 10^3/uL (3.5-10.8)
[2023-01-26 05:56] LABS: INR 1.69 (0.88-1.18)
[2023-01-26 06:10] LABS: Albumin 2.7 g/dL (3.2-5.2); Calcium 8.6 mg/dL (8.6-10.3); Creatinine, Serum 0.91 mg/dL (0.67-1.17); Globulin 2.8 g/dL (2-4); Magnesium 2.1 mg/dL (1.9-2.7); Potassium 4.4 mmol/L (3.5-5.0); Total Bilirubin 2.9 mg/dL (0.2-1.0); Total Protein 5.5 g/dL (6.4-8.9); eGFR CKD-EPI 95.9 (>60)
[2023-01-26 06:12] LABS: ABS Basophils 0.1 10^3/ul (0-0.2); ABS Eosinophils 0.1 10^3/ul (0-0.6); ABS Lymphocytes 1.2 10^3/ul (1.0-4.8); ABS Monocytes 1.8 10^3/ul (0-0.8); ABS Neutrophils 12.5 10^3/ul (1.5-7.7); Eosinophil % 0.7 %; Lymphocyte % 7.7 %
[2023-01-26] MEDS: Heparin 5000 UNITS/ML 1 mL VIAL SUBCUT SCH ×2 (08:16→20:46)
[2023-01-26] MEDS: Lactulose 30 ml UDC PO SCH ×4 (08:16→20:47)
[2023-01-26] MEDS ORDERED: cefTRIAXone 2 gm/50 mL D5W 2 GM/50 ML BAG IV SCH (09:00)
[2023-01-26] MEDS ORDERED: cefTRIAXone 2 GM ADDV.VIAL 2 GM in NS 0.9% 100 ml BAG 100 ML IV SCH (09:00)
[2023-01-26 10:23] LABS: Urine Appearance Clear; Urine Bilirubin Negative (Negative); Urine Blood Negative (Negative); Urine Color Amber; Urine Glucose Negative (Negative); Urine Ketones Trace (Negative); Urine Nitrite Negative (Negative); Urine Protein 1+(30 mg/dL) (Negative); Urine Specific Gravity 1.024 (1.002-1.030); Urine Urobilinogen Positive (Negative)
[2023-01-26 10:33] LABS: Urine Bacteria Absent (Absent); Urine Red Blood Cell Trace(0-2/hpf) (Absent); Urine White Blood Cell Trace(0-5/hpf) (Absent)
[2023-01-27 05:59] LABS: ABS Basophils 0.1 10^3/ul (0-0.2); ABS Eosinophils 0.4 10^3/ul (0-0.6); ABS Lymphocytes 0.7 10^3/ul (1.0-4.8); ABS Neutrophils 7.9 10^3/ul (1.5-7.7); Eosinophil % 3.9 %; Hematocrit 29 % (42-52); Hemoglobin 9.7 g/dL (14.0-18.0); Lymphocyte % 6.6 %; Mean Corpuscular Hemoglobin 33 pg (27-31); Mean Corpuscular Hgb Conc 33 g/dL (31-36); Mean Corpuscular Volume 98 fL (80-94); Mean Platelet Volume 6.2 fL (7.4-10.4); Nucleated Red Blood Cells % 0.1; Platelet Count 145 10^3/uL (150-450); Red Blood Count 2.95 10^6 /uL (4.18-5.48); Red Cell Distribution Width 17 % (10-15)
[2023-01-27 06:00] LABS: INR 1.63 (0.88-1.18)
[2023-01-27 06:11] LABS: Albumin 2.6 g/dL (3.2-5.2); Potassium 4.1 mmol/L (3.5-5.0); Total Bilirubin 1.7 mg/dL (0.2-1.0)
[2023-01-27 06:17] LABS: Creatinine, Serum 0.69 mg/dL (0.67-1.17); Globulin 2.7 g/dL (2-4); Total Protein 5.3 g/dL (6.4-8.9); eGFR CKD-EPI 105.3 (>60)
[2023-01-27] MEDS: Heparin 5000 UNITS/ML 1 mL VIAL SUBCUT SCH (08:01)
[2023-01-27] MEDS: Lactulose 30 ml UDC PO SCH (08:02)
[2023-01-27] MEDS ORDERED: cefTRIAXone 2 GM ADDV.VIAL 2 GM in NS 0.9% 100 ml BAG 100 ML IV SCH (09:00)
[2023-01-27] MEDS ORDERED: cefTRIAXone 1 gm/50 mL D5W 1 GM/50 ML BAG IV SCH (09:00)
[2023-01-27] MEDS ORDERED: cefTRIAXone 2 gm/50 mL D5W 2 GM/50 ML BAG IV SCH (09:00)
[2023-01-27 09:57] VITALS: BP 121/68
== END 2023-01-27 12:35 | disposition home or self-care (01) | DRG 441 ==
LOC: ED 07:29 → SUATTDRO 09:58 → EDHOLD 09:58 → MED 18:19
PROVIDERS: ADMIT Hospitalist; ATTEND Internal Medicine